=== PATIENT | male | born 1935 | race Caucasian/White ===

== ENCOUNTER 2020-02-10 18:09 | Emergency (ER) | payer MEDICARE ==
[~2020-02-10] VITALS: Ht 177.8 cm; Wt 97.7 kg
[2020-02-10] MEDS ORDERED: SODIUM CHLORIDE FLUSH 10ML SYR IVF ONE (18:30)
[2020-02-10] MEDS ORDERED: PLEASE ENTER ALLERGIES MC SCH (18:30)
[2020-02-10] MEDS ORDERED: SODIUM CHLORIDE 0.9% 1,000ML IVBOLUS ONE (18:30)
[2020-02-10] MEDS ORDERED: ONDANSETRON 2MG/ML, 2ML IVPush ONE (18:30)
[2020-02-10] MEDS ORDERED: ONDANSETRON 2MG/ML, 2ML ONE (18:49)
--- NOTE | 2020-02-10 18:58 | NUR ---
IV STARTED NAUSEA MEDS ADMINISTERED. PATIENT TOLERATED WELL. VITAL SIGNS UPDATED, WTIHIN NORMAL LIMITS. BLANKET GIVEN.
[2020-02-10 18:59] LABS: BASOPHILS # (AUTO) 0.01 x10^3/uL (0-0.1); BASOPHILS % (AUTO) 0 % (0-1); EOSINOPHILS # (AUTO) 0.01 x10^3/uL (0-0.4); EOSINOPHILS % (AUTO) 0 % (1-7); LYMPHOCYTES % (AUTO) 3 % (22-44); MD NO; MEAN PLATELET VOLUME 8.8 fL (7.4-10.4); MONOCYTES % (AUTO) 4 % (2-9); NEUTROPHILS # (AUTO) 9.64 x10^3/uL (1.8-6.8); NEUTROPHILS % (AUTO) 93 % (42-75); PLATELET COUNT 197 x10^3/uL (130-400); RED BLOOD COUNT 4.71 x10^6/uL (4.38-5.82); RED CELL DISTRIBUTION WIDTH 14.5 % (9.4-14.8)
[2020-02-10 19:05] LABS: ALANINE AMINOTRANSFERASE 23 U/L (12-78); ALBUMIN 3.5 g/dL (3.4-5.0); ANION GAP 7 mmol/L (5-15); CALCIUM 8.6 mg/dL (8.5-10.1); CHLORIDE 107 mmol/L (98-107); CREATININE 1.57 mg/dL (0.7-1.3)
[2020-02-10 19:10] LABS: ALKALINE PHOSPHATASE 81 U/L (45-117); TOTAL PROTEIN 7.3 g/dL (6.4-8.2); TROPONIN I < 0.015 ng/mL (0.000-0.045)
--- NOTE | 2020-02-10 19:13 | NUR ---
PT ENDORSED TO [facility] BENZ RN.
--- NOTE | 2020-02-10 20:16 | NUR ---
RESTING QUIETLY ON BED, SON IN ROOM. PT ORIENTED TO NAME, , YEAR; CONFUSED ON MONTH & DAY. LIVES BY HIMSELF; NO AMBULATORY AID. PER PT & SON, PT WAS A NO-SHOW FOR FAMILY DINNER. PT WAS FOUND AT HIS HOME, CONFUSED; TOLD SON HE VOMITED TODAY. PT DENIES PAIN, N/V, DIARRHEA, CONSTIPATION CURRENTLY. IV 20G LAC; SITE PATENT, NS INFUSING
[2020-02-10 20:33] VITALS: BP 127/80
[2020-02-10] MEDS ORDERED: CINN500C2 PO (20:33)
[2020-02-10] MEDS ORDERED: PRED20TA PO (20:33)
[2020-02-10] MEDS ORDERED: LISI-167 PO (20:33)
[2020-02-10] MEDS ORDERED: FINA5TAB4 PO (20:33)
[2020-02-10] MEDS ORDERED: CASTOR PO (20:33)
[2020-02-10] MEDS ORDERED: SIMV40TA20 PO (20:33)
[2020-02-10] MEDS ORDERED: CETI-158 PO (20:33)
[2020-02-10] MEDS ORDERED: OMEG1CAP23 PO (20:33)
[2020-02-10] MEDS ORDERED: TAMS-11 PO (20:33)
--- NOTE | 2020-02-10 20:33 | NUR ---
PT AND SON NOTIFIED OF PT'S NPO STATUS
--- NOTE | 2020-02-10 21:24 | NUR ---
PT DRINKING WATER. DENIES TROUBLE SWALLOWING.
[2020-02-10 21:40] LABS: MICROSCOPIC AUTO
--- NOTE | 2020-02-10 22:09 | NUR ---
REPORT RECEIVED FROM TIFFANY URBAN. ASSUMED CARE OF PT. DISCHARGE PAPERWORK UP, PT TO BE DISCHARGED
--- NOTE | 2020-02-10 22:19 | NUR ---
Patient/Caregiver given discharge instructions and they have confirmed that they understand the instructions. Patient IN WHEELCHAIR, ACCOMPANIED BY SON
== END 2020-02-10 22:23 | disposition home or self-care (01) ==
LOC: ED 19:09
DX: R11.2 Nausea with vomiting, unspecified (principal); E86.0 Dehydration; R53.81 Other malaise; R00.1 Bradycardia, unspecified
CPT/HCPCS: 36415; 71045; 80053; 81001; 83690; 83880; 84484; 85025; 87086; 93005; 96374; 96375; 99285; J2405; J7030

== ENCOUNTER 2020-02-14 13:49 | Inpatient (IN) | payer MEDICARE ==
[~2020-02-14] VITALS: Ht 177.8 cm; Wt 97.8 kg
[~2020-02-14 13:49] MED LIST: CASTOR PO; CETI-158 PO; CINN500C2 PO; FINA5TAB4 PO; LISI-167 PO; OMEG1CAP23 PO; PRED20TA PO; SIMV40TA20 PO; TAMS-11 PO
[2020-02-14] MEDS ORDERED: ACETAMINOPHEN 325 MG TABLET ONE (14:15)
[2020-02-14] MEDS ORDERED: ACETAMINOPHEN 325 MG TABLET PO ONE (14:30)
[2020-02-14] MEDS ORDERED: AMPICILLIN/SULBACTAM 3 GM in SODIUM CHLORIDE 0.9% 100 ML IV ONE (14:30)
[2020-02-14] MEDS ORDERED: SODIUM CHLORIDE FLUSH 10ML SYR IVF ONE (14:30)
[2020-02-14] MEDS ORDERED: SODIUM CHLORIDE 0.9% 1,000ML IVBOLUS ONE (14:30)
[2020-02-14 14:46] LABS: BASOPHILS # (AUTO) 0.03 x10^3/uL (0-0.1); BASOPHILS % (AUTO) 0 % (0-1); EOSINOPHILS # (AUTO) 0.01 x10^3/uL (0-0.4); EOSINOPHILS % (AUTO) 0 % (1-7); LYMPHOCYTES # (AUTO) 0.66 x10^3/uL (1-3.4); LYMPHOCYTES % (AUTO) 5 % (22-44); MD NO; MEAN CORPUSCULAR HEMOGLOBIN 30.8 pg (27.5-34.5); MEAN CORPUSCULAR HGB CONC 32.9 g/dL (33.2-36.2); MEAN CORPUSCULAR VOLUME 93.5 fL (81-97); MEAN PLATELET VOLUME 9.1 fL (7.4-10.4); MONOCYTES % (AUTO) 5 % (2-9); NEUTROPHILS # (AUTO) 10.96 x10^3/uL (1.8-6.8); NEUTROPHILS % (AUTO) 89 % (42-75); PLATELET COUNT 199 x10^3/uL (130-400); RED BLOOD COUNT 4.37 x10^6/uL (4.38-5.82); RED CELL DISTRIBUTION WIDTH 13.9 % (9.4-14.8)
[2020-02-14 14:54] LABS: ALANINE AMINOTRANSFERASE 35 U/L (12-78); ALBUMIN 2.7 g/dL (3.4-5.0); ANION GAP 8 mmol/L (5-15); CHLORIDE 105 mmol/L (98-107); CREATININE 1.51 mg/dL (0.7-1.3)
[2020-02-14 14:56] LABS: ALKALINE PHOSPHATASE 87 U/L (45-117); BILIRUBIN,TOTAL 1.2 mg/dL (0.2-1.0)
[2020-02-14] MEDS ORDERED: SODIUM CHLORIDE 0.9% 1,000 ML IV SCH (17:06)
[2020-02-14 17:20] VITALS: BP 114/62
[2020-02-14] MEDS ORDERED: hydrALAzine 20 MG/ML, 1ML IVPush PRN (17:30)
[2020-02-14] MEDS ORDERED: ONDANSETRON 2MG/ML, 2ML IVPush PRN (17:30)
[2020-02-14] MEDS ORDERED: PROMETHAZINE 25 MG/ML, 1ML IM PRN (17:30)
[2020-02-14] MEDS ORDERED: HYDROcodone/APAP 5/325 TABLET PO PRN (17:30)
[2020-02-14] MEDS ORDERED: ACETAMINOPHEN 325 MG TABLET PO PRN (17:30)
[2020-02-14] MEDS ORDERED: LABETALOL 5MG/ML, 20ML IVPush PRN (17:30)
[2020-02-14] MEDS: HEPARIN 5,000 UNITS/ML, 1ML SQ SCH (18:19)
[2020-02-14] MEDS: GUAIFENESIN 200 MG TABLET PO SCH ×2 (18:19→22:03)
[2020-02-14] MEDS: SODIUM CHLORIDE 0.9% 1,000 ML IV SCH ×2 (18:21→22:04)
[2020-02-14] MEDS ORDERED: ALBUTEROL HFA 90 MCG/SPRAY INH PRN (21:00)
[2020-02-14 21:04] VITALS: BP 129/65
[2020-02-14 21:38] LABS: MICROSCOPIC INDICATED
[2020-02-14] MEDS: SIMVASTATIN 10 MG TABLET PO SCH (22:03)
[2020-02-14] MEDS: AMPICILLIN/SULBACTAM 1,500 MG in SODIUM CHLORIDE 0.9% 50 ML IV SCH (22:03)
[2020-02-15] MEDS: HEPARIN 5,000 UNITS/ML, 1ML SQ SCH ×3 (01:25→16:56)
[2020-02-15 01:54] VITALS: BP 127/65
[2020-02-15] MEDS: SODIUM CHLORIDE 0.9% 1,000 ML IV SCH (02:30)
[2020-02-15] MEDS: AMPICILLIN/SULBACTAM 1,500 MG in SODIUM CHLORIDE 0.9% 50 ML IV SCH ×4 (04:06→21:43)
[2020-02-15 05:28] LABS: BASOPHILS # (AUTO) 0.01 x10^3/uL (0-0.1); BASOPHILS % (AUTO) 0 % (0-1); EOSINOPHILS # (AUTO) 0.09 x10^3/uL (0-0.4); EOSINOPHILS % (AUTO) 1 % (1-7); LYMPHOCYTES % (AUTO) 13 % (22-44); MD NO; MEAN CORPUSCULAR HEMOGLOBIN 30.6 pg (27.5-34.5); MEAN CORPUSCULAR HGB CONC 32.6 g/dL (33.2-36.2); MEAN CORPUSCULAR VOLUME 94.1 fL (81-97); MONOCYTES # (AUTO) 0.51 x10^3/uL (0.2-0.8); MONOCYTES % (AUTO) 5 % (2-9); NEUTROPHILS # (AUTO) 7.59 x10^3/uL (1.8-6.8); NEUTROPHILS % (AUTO) 81 % (42-75); PLATELET COUNT 183 x10^3/uL (130-400); RED BLOOD COUNT 4.01 x10^6/uL (4.38-5.82)
[2020-02-15 05:36] LABS: CHLORIDE 110 mmol/L (98-107)
[2020-02-15 05:48] LABS: ALANINE AMINOTRANSFERASE 28 U/L (12-78); ALBUMIN 2.3 g/dL (3.4-5.0); ALKALINE PHOSPHATASE 82 U/L (45-117); ANION GAP 7 mmol/L (5-15); BILIRUBIN,TOTAL 0.8 mg/dL (0.2-1.0); CALCIUM 7.8 mg/dL (8.5-10.1); CREATININE 1.27 mg/dL (0.7-1.3)
[2020-02-15] MEDS: GUAIFENESIN 200 MG TABLET PO SCH ×4 (06:31→21:43)
[2020-02-15 08:34] VITALS: BP 117/57
[2020-02-15] MEDS: TAMSULOSIN 0.4 MG CAP.ER.24H PO SCH (08:53)
[2020-02-15] MEDS: FINASTERIDE 5 MG TABLET PO SCH (08:53)
[2020-02-15] MEDS: CETIRIZINE 10 MG TABLET PO SCH (08:53)
[2020-02-15 13:44] VITALS: BP 124/67
[2020-02-15 21:30] VITALS: BP 135/75
[2020-02-15] MEDS: SIMVASTATIN 10 MG TABLET PO SCH (21:43)
[2020-02-16] MEDS: HEPARIN 5,000 UNITS/ML, 1ML SQ SCH ×3 (01:30→17:14)
[2020-02-16 01:43] VITALS: BP 147/82
[2020-02-16] MEDS: GUAIFENESIN 200 MG TABLET PO SCH ×4 (05:00→20:43)
[2020-02-16] MEDS: AMPICILLIN/SULBACTAM 1,500 MG in SODIUM CHLORIDE 0.9% 50 ML IV SCH (05:00)
[2020-02-16 05:29] LABS: CHLORIDE 114 mmol/L (98-107)
[2020-02-16 05:34] LABS: ANION GAP 5 mmol/L (5-15); CALCIUM 7.7 mg/dL (8.5-10.1); CREATININE 1.18 mg/dL (0.7-1.3)
[2020-02-16 06:43] LABS: BASOPHILS # (AUTO) 0.03 x10^3/uL (0-0.1); BASOPHILS % (AUTO) 1 % (0-1); EOSINOPHILS # (AUTO) 0.21 x10^3/uL (0-0.4); EOSINOPHILS % (AUTO) 3 % (1-7); LYMPHOCYTES # (AUTO) 1.39 x10^3/uL (1-3.4); LYMPHOCYTES % (AUTO) 22 % (22-44); MD NO; MEAN CORPUSCULAR HEMOGLOBIN 30.3 pg (27.5-34.5); MEAN CORPUSCULAR HGB CONC 31.6 g/dL (33.2-36.2); MEAN CORPUSCULAR VOLUME 95.7 fL (81-97); MEAN PLATELET VOLUME 8.8 fL (7.4-10.4); MONOCYTES # (AUTO) 0.48 x10^3/uL (0.2-0.8); MONOCYTES % (AUTO) 7 % (2-9); NEUTROPHILS # (AUTO) 4.37 x10^3/uL (1.8-6.8); NEUTROPHILS % (AUTO) 67 % (42-75); PLATELET COUNT 216 x10^3/uL (130-400); RED BLOOD COUNT 3.92 x10^6/uL (4.38-5.82); RED CELL DISTRIBUTION WIDTH 14.1 % (9.4-14.8)
[2020-02-16 09:33] VITALS: BP 137/77
[2020-02-16] MEDS: TAMSULOSIN 0.4 MG CAP.ER.24H PO SCH (09:56)
[2020-02-16] MEDS: CETIRIZINE 10 MG TABLET PO SCH (09:56)
[2020-02-16] MEDS: FINASTERIDE 5 MG TABLET PO SCH (09:57)
[2020-02-16] MEDS: AMOXICILLIN/CLAV 875-125MG TABLET PO SCH ×2 (11:53→22:40)
[2020-02-16 12:48] VITALS: BP 123/63
[2020-02-16 20:11] VITALS: BP 160/86
[2020-02-16] MEDS: SIMVASTATIN 10 MG TABLET PO SCH (20:43)
[2020-02-17] MEDS: HEPARIN 5,000 UNITS/ML, 1ML SQ SCH ×2 (01:22→09:29)
[2020-02-17 01:46] VITALS: BP 137/81
[2020-02-17] MEDS: GUAIFENESIN 200 MG TABLET PO SCH ×2 (05:48→12:22)
[2020-02-17 09:12] VITALS: BP 141/76
[2020-02-17] MEDS: FINASTERIDE 5 MG TABLET PO SCH (09:29)
[2020-02-17] MEDS: TAMSULOSIN 0.4 MG CAP.ER.24H PO SCH (09:29)
[2020-02-17] MEDS: CETIRIZINE 10 MG TABLET PO SCH (09:30)
[2020-02-17] MEDS ORDERED: AMOX1TAB12 PO (11:33)
[2020-02-17] MEDS: AMOXICILLIN/CLAV 875-125MG TABLET PO SCH (12:22)
[2020-02-17 13:02] VITALS: BP 135/91
== END 2020-02-17 13:22 | disposition home or self-care (01) | DRG 872 ==
LOC: ED 15:32 → 3N 17:03 → 4NE 18:16
PROVIDERS: ADMIT Family Medicine; ATTEND Family Medicine
DX: A41.9 Sepsis, unspecified organism (principal); E87.1 Hypo-osmolality and hyponatremia; L03.115 Cellulitis of right lower limb; L03.116 Cellulitis of left lower limb; N17.9 Acute kidney failure, unspecified; E78.5 Hyperlipidemia, unspecified; E86.0 Dehydration; I10 Essential (primary) hypertension; J45.909 Unspecified asthma, uncomplicated; N40.0 Benign prostatic hyperplasia without lower urinary tract symptoms; I95.9 Hypotension, unspecified; M79.89 Other specified soft tissue disorders; R94.5 Abnormal results of liver function studies
CPT/HCPCS: 36415; 80053; 80069; 81001; 83605; 83735; 84145; 85025; 87040; 93970; 96365; 99291; G0378; J0295; J1644; J7030